=== PATIENT | male | born 1990 | race Caucasian/White ===

== ENCOUNTER 2016-08-30 09:42 | Emergency (ER) | payer BC ==
[2016-08-30] MEDS ORDERED: Famotidine 20 MG/2 ML SDV IVPUSH ONE (10:00)
[2016-08-30] MEDS ORDERED: Sodium Chloride 0.9% 2.5 ML Syringe FLUSH PRN (10:00)
[2016-08-30] MEDS ORDERED: Sodium Chloride 0.9% 10 ML Syringe FLUSH PRN (10:00)
[2016-08-30] MEDS ORDERED: Ondansetron 4 MG/2 ML SDV IVPUSH ONE (10:00)
[2016-08-30] MEDS ORDERED: Sodium Chloride 0.9% 1,000 ML IV ONE (10:00)
[2016-08-30] MEDS ORDERED: Pantoprazole 40 MG Vial IVPUSH ONE (10:04)
[2016-08-30] MEDS ORDERED: Morphine 2 MG/ML Syringe IVPUSH ONE (10:05)
--- NOTE | 2016-08-30 10:13 | EDM.PDOC ---
ED HPI GENERAL MEDICAL PROBLEM - General Chief Complaint: Gastrointestinal Problem Stated Complaint: VOMITTING BLOOD Time Seen by Provider: 08/30/16 10:00 - History of Present Illness INITIAL COMMENTS - FREE TEXT/NARRATIVE: HISTORY AND PHYSICAL: History of present illness: The patient is a 26-year-old male with a history of an ulcer that he takes over- the-counter meds for presents with complaints of diffuse abdominal pain vomiting without blood after a drinking binge last evening. The patient states the pain is diffuse on his abdomen and crampy and sharp her but more in the upper abdomen on the left and epigastrium. There is no chest pain or shortness of breath and no dizziness or lightheadedness. Patient also states he had some lack loose stool this morning but he has no rectal pain. Patient states he does drink regularly and has never had liver or pancreas issues in the past. He has no colonic issues and no surgical history. Patient came to the ED because he was concerned about the blood in the vomit. Review of systems: As per history of present illness and below otherwise all systems reviewed and negative. Past medical history: As per history of present illness and as reviewed below otherwise noncontributory. Surgical history: As per history of present illness and as reviewed below otherwise noncontributory. Social history: No reported history of drug or alcohol abuse. Family history: As per history of present illness and as reviewed below otherwise noncontributory. Physical exam: General: Well-developed well-nourished man who looks uncomfortable in the room with speaking clearly and easily and is not tremulous. HEENT: Atraumatic, normocephalic, pupils reactive, negative for conjunctival pallor or scleral icterus, mucous membranes tacky, throat clear, neck supple, nontender, trachea midline. Lungs: Clear to auscultation, breath sounds equal bilaterally, chest nontender. Heart: S1S2, regular rhythm and slightly tachycardic rate on my evaluation, negative for clicks, rubs, or JVD. Abdomen: Soft, nondistended, diffusely tender more in the epigastrium and left upper abdomen without rebound or guarding, bowel sounds are normoactive Negative for masses or hepatosplenomegaly. Negative for costovertebral tenderness. Pelvis: Stable nontender. Genitourinary: Deferred. Rectal: Normal tone no anal or perirectal masses there is scant light brown stool in the vault which is Hemoccult negative Extremities: Atraumatic, negative for cords or calf pain. Neurovascular unremarkable. Neuro: Awake, alert, oriented. Cranial nerves II through XII unremarkable. Cerebellum unremarkable. Motor and sensory unremarkable throughout. Exam nonfocal. Diagnostics: CBC CMP amylase lipase EtOH level We'll reevaluate and consider CT scan as indicated Therapeutics: IV fluids Protonix Zofran morphine He is sleeping currently and has not had any vomiting while he is here. I discussed all testing results with a significant other at bedside and the patient. I advised close followup for the esophagitis and I will place him on Prevacid until he can followup. I will also give him Zofran and advised clear liquid diet today no caffeine no alcohol and no fast foods or junk foods. Advised and reasons to return to the ED. Impression: Abdominal pain with hematemesis status post alcohol use; esophagitis acute on chronic; alcohol intoxication Definitive disposition and diagnosis as appropriate pending reevaluation and review of above. abdomen Pain Score (Numeric/FACES): 10 - Related Data Allergies Allergy/AdvReac Type Severity Reaction Status Date / Time No Known Allergies Allergy Verified 08/30/16 10:05 Home Meds: Home Meds . [No Known Home Meds] 07/15/15 [History] Past Medical History - Past Health History Medical/Surgical History: Denies Medical/Surgical History - Infectious Disease History Infectious Disease History: Reports: Chicken pox Other Infectious Disease History: childhood - Past Surgical History GI Surgical History: Reports: Hernia, abdominal, Other (see below) Other GI Surgeries/Procedures: x2 Oncologic Surgical History: Reports: Mastectomy, Other (see below) Other Oncologic Surgeries/Procedures: non cancerous cyst removed on right 5th finger Social & Family History - Family History Family Medical History: Noncontributory - Tobacco Use Smoking Status *Q: Current Every Day Smoker Years of Tobacco use: 2 Packs/Tins Daily: 1 - Alcohol Use Days Per Week of Alcohol Use: 1 Number of Drinks Per Day: 5 Total Drinks Per Week: 5 - Recreational Drug Use Recreational Drug Use: No ED ROS GENERAL - Review of Systems Review Of Systems: ROS reveals no pertinent complaints other than HPI. ED EXAM, GENERAL - Physical Exam Exam: See Below (See dictation) Course - Vital Signs Last Recorded V/S: Last Vital Signs Temp 36.2 C 08/30/16 10:00 Pulse 113 H 08/30/16 10:00 Resp 18 08/30/16 10:00 BP 116/68 08/30/16 10:00 Pulse Ox 96 08/30/16 10:00 - Orders/Labs/Meds Orders: Active Orders 24 hr Category Date Time Status Hemoccult [Fecal Occult Blood Collection] [RC] Care 08/30/16 10:12 Active ASDIRECTED Abdomen Pelvis w Cont [CT] Stat Exams 08/30/16 10:50 Taken Sodium Chloride 0.9% [Saline Flush] Med 08/30/16 10:00 Active 10 ml FLUSH ASDIRECTED PRN Sodium Chloride 0.9% [Saline Flush] Med 08/30/16 10:00 Active 2.5 ml FLUSH ASDIRECTED PRN Saline Lock Insert [OM.PC] Stat Oth 08/30/16 10:00 Ordered Medication Orders Sodium Chloride (Saline Flush) 10 ml FLUSH ASDIRECTED PRN PRN Reason: Keep Vein Open Last Admin: 08/30/16 10:25 Dose: 10 ml Sodium Chloride (Saline Flush) 2.5 ml FLUSH ASDIRECTED PRN PRN Reason: Keep Vein Open Last Admin: 08/30/16 10:25 Dose: 2.5 ml Labs: Laboratory Tests 08/30/16 08/30/16 08/30/16 Range/Units 10:23 10:23 10:23 WBC 14.33 H (4.0-11.0) K/uL RBC 5.20 (4.50-5.90) M/uL Hgb 16.6 (13.0-17.0) g/dL Hct 47.2 (38.0-50.0) % MCV 90.8 (80.0-98.0) fL MCH 31.9 (27.0-32.0) pg MCHC 35.2 (31.0-37.0) g/dL RDW Std Deviation 42.8 (28.0-62.0) fl RDW Coeff of Alejandra 13 (11.0-15.0) % Plt Count 271 (150-400) K/uL MPV 10.80 (7.40-12.00) fL Neut % (Auto) 80.9 H (48.0-80.0) % Lymph % (Auto) 15.6 L (16.0-40.0) % [place] % (Auto) 3.3 (0.0-15.0) % Eos % (Auto) 0.1 (0.0-7.0) % Baso % (Auto) 0.1 (0.0-1.5) % Neut # 11.6 H (1.4-5.7) K/uL Lymph # 2.2 (0.6-2.4) K/uL [place] # 0.5 (0.0-0.8) K/uL Eos # 0.0 (0.0-0.7) K/uL Baso # 0.0 (0.0-0.1) K/uL Sodium 139 (136-146) mmol/L Potassium 4.4 (3.5-5.1) mmol/L Chloride 103 (98-110) mmol/L Carbon Dioxide 22 (21-31) mmol/L BUN 13 (6.0-23.0) mg/dL Creatinine 0.8 (0.6-1.5) mg/dL Est Cr Clr Drug Dosing 134.19 mL/min Estimated GFR (MDRD) > 60.0 ml/min Glucose 124 H (60-110) mg/dL Calcium 9.3 (8.8-10.8) mg/dL Total Bilirubin 0.4 (0.1-1.5) mg/dL AST 24 (5-40) IU/L ALT 42 (8-54) IU/L Alkaline Phosphatase 61 (40-150) Total Protein 8.0 (6.0-8.0) g/dL Albumin 4.9 (3.5-5.0) g/dL Globulin 3.1 (2.0-3.5) g/dL Albumin/Globulin Ratio 1.6 (1.3-2.8) Amylase 72 (10-90) U/L Lipase 17 (7-80) U/L Ethyl Alcohol 227.7 mg/dL Meds: Medications Generic Name Dose Route Start Last Admin Trade Name Freq PRN Reason Stop Dose Admin Sodium Chloride 10 ml 08/30/16 10:00 08/30/16 10:25 Saline Flush FLUSH 10 ml ASDIRECTED PRN Administration Keep Vein Open Sodium Chloride 2.5 ml 08/30/16 10:00 08/30/16 10:25 Saline Flush FLUSH 2.5 ml ASDIRECTED PRN Administration Keep Vein Open Discontinued Medications Generic Name Dose Route Start Last Admin Trade Name Freq PRN Reason Stop Dose Admin Famotidine 20 mg 08/30/16 10:00 Pepcid IVPUSH 08/30/16 10:01 ONETIME ONE Sodium Chloride 1,000 mls @ 999 mls/hr 08/30/16 10:00 08/30/16 10:25 Normal Saline IV 08/30/16 11:00 999 mls/hr STAT ONE Administration Iopamidol 100 ml 08/30/16 11:24 08/30/16 11:24 Isovue-370 (76%) IVPUSH 08/30/16 11:25 100 ml ONETIME STA Administration Morphine Sulfate 2 mg 08/30/16 10:05 08/30/16 10:25 Morphine IVPUSH 08/30/16 10:06 2 mg ONETIME ONE Administration Ondansetron HCl 4 mg 08/30/16 10:00 08/30/16 10:24 Zofran IVPUSH 08/30/16 10:01 4 mg ONETIME ONE Administration Pantoprazole Sodium 80 mg 08/30/16 10:04 08/30/16 10:25 Protonix Iv IVPUSH 08/30/16 10:05 80 mg .BOLUS ONE Administration Departure - Departure Time of Disposition: 12:07 Disposition: Home, Self-Care 01 Condition: fair Clinical Impression: Vomiting, Alcohol use Abdominal pain Qualifiers: Abdominal location: generalized Qualified Code(s): R10.84 - Generalized abdominal pain Referrals: PCP,None [Primary Care Provider] - Forms: ED Department Discharge Additional Instructions: The following information is given to patients seen in the emergency department who are being discharged to home. This information is to outline your options for follow-up care. We provide all patients seen in our emergency department with a follow-up referral. The need for follow-up, as well as the timing and circumstances, are variable depending upon the specifics of your emergency department visit. If you don't have a primary care physician on staff, we will provide you with a referral. We always advise you to contact your personal physician following an emergency department visit to inform them of the circumstance of the visit and for follow-up with them and/or the need for any referrals to a consulting specialist. The emergency department will also refer you to a specialist when appropriate. This referral assures that you have the opportunity for followup care with a specialist. All of these measure are taken in an effort to provide you with optimal care, which includes your followup. Under all circumstances we always encourage you to contact your private physician who remains a resource for coordinating your care. When calling for followup care, please make the office aware that this follow-up is from your recent emergency room visit. If for any reason you are refused follow-up, please contact the [facility] emergency department at and ask to speak to the emergency department charge nurse. [facility] Primary care- Internal Medicine and [facility] [address] [place] [address] [facility] Professional [facility] [address] [place] [id number] Please follow up with primary care and neurosurgery department for further evaluation of the esophagitis. Please refrain from caffeine and alcohol use and push clear liquid diet today and bland bites of food as tolerated. Please rest and return to ER as needed and as discussed. Take medications as prescribed. - My Orders Last 24 Hours: My Active Orders 08/30/16 10:00 Sodium Chloride 0.9% [Saline Flush] 10 ml FLUSH ASDIRECTED PRN Sodium Chloride 0.9% [Saline Flush] 2.5 ml FLUSH ASDIRECTED PRN Saline Lock Insert [OM.PC] Stat 08/30/16 10:12 Hemoccult [Fecal Occult Blood Collection] [RC] ASDIRECTED 08/30/16 10:50 Abdomen Pelvis w Cont [CT] Stat - Assessment/Plan Last 24 Hours: My Active Orders 08/30/16 10:00 Sodium Chloride 0.9% [Saline Flush] 10 ml FLUSH ASDIRECTED PRN Sodium Chloride 0.9% [Saline Flush] 2.5 ml FLUSH ASDIRECTED PRN Saline Lock Insert [OM.PC] Stat 08/30/16 10:12 Hemoccult [Fecal Occult Blood Collection] [RC] ASDIRECTED 08/30/16 10:50 Abdomen Pelvis w Cont [CT] Stat
[2016-08-30 10:54] LABS: CHLORIDE,CL 103 mmol/L (98-110); SODIUM,NA 139 mmol/L (136-146)
[2016-08-30] MEDS ORDERED: Iopamidol 755 Mg/ML 100 ML Bottle IVPUSH STA (11:24)
[2016-08-30 12:18] VITALS: BP 113/70
--- NOTE | 2016-08-31 16:58 | CT ---
EXAM DATE: 08/30/16 PATIENT'S AGE: 26 Patient: CLARKE WALLIS Facility: [place], [place] Site . Site : 1990 Study: CT Abdomen/Pelvis w cont [id number] 11:25:20 AM Ordering Physician: Angel Lovelace Final Report: INDICATION: Left lower quadrant abdominal pain; hematemesis; patient was drinking excessively last night. Comparison: CT abdomen and pelvis October 07, 2015. Technique: CT abdomen and pelvis with intravenous contrast; no oral contrast; coronal and sagittal reformats. Findings: No abnormal intra pulmonary nodular densities through the lung bases. No evidence of pleural effusion. Normal size cardiac silhouette without any evidence of pericardial effusion. No focal hepatic or splenic pathology. No pancreatic pathology. No peripancreatic inflammatory changes. No evidence of calcifications within the pancreas. Gallbladder is unremarkable. Splenic vein, superior mesenteric vein and the portal vein are unremarkable. Hepatic veins and the inferior vena cava are unremarkable. No evidence of pneumomediastinum. Minimal thickening of the wall of the distal esophagus; rule out esophagitis. No evidence of abdominal or pelvic ascites. No adrenal pathology. Symmetric perfusion of both the kidneys without any obstructive uropathy or perinephric pathology . No retroperitoneal lymphadenopathy. Normal appendix. CT study of the pelvis is unremarkable. Impression: 1. Minimal thickening of the wall of the distal esophagus; rule out esophagitis. 2. Negative CT of the abdomen and pelvis with intravenous contrast otherwise. Dictated by Joellen Fontenot MD @ Aug 30 2016 11:38AM (Electronic Signature) Report Signed by Proxy and Original Signed Document filed in the Medical Record. [facility]
== END 2016-08-30 12:11 | disposition home or self-care (01) ==
LOC: MW.ED 09:42
DX: F10.129 Alcohol abuse with intoxication, unspecified (principal); K20.9 Esophagitis, unspecified; R11.10 Vomiting, unspecified; F17.210 Nicotine dependence, cigarettes, uncomplicated; Y90.7 Blood alcohol level of 200-239 mg/100 ml
CPT/HCPCS: 36415; 74177; 80053; 82150; 83690; 85025; 96361; 96374; 96375; 99284; C9113; G0480; J2270; J2405; J7040; Q9967

== ENCOUNTER 2017-05-01 14:17 | Emergency (ER) | payer SELFPAY ==
[2017-05-01] MEDS ORDERED: Sodium Chloride 0.9% 1,000 ML IV ONE (14:45)
[2017-05-01] MEDS ORDERED: HYDROmorphone 2 MG/ML Syringe IVPUSH ONE (14:45)
[2017-05-01] MEDS ORDERED: Ondansetron 4 MG/2 ML SDV IVPUSH ONE (14:45)
[2017-05-01 15:21] LABS: CHLORIDE,CL 108 mmol/L (98-110); SODIUM,NA 139 mmol/L (136-146)
[2017-05-01] MEDS ORDERED: Ketorolac 30 MG/ML SDV IVPUSH ONE (16:49)
--- NOTE | 2017-05-01 16:51 | EDM.PDOC ---
ED HPI GENERAL MEDICAL PROBLEM - General Chief Complaint: Back Pain or Injury Stated Complaint: LOWER BACK PAIN Time Seen by Provider: 05/01/17 14:46 Source of Information: Reports: Patient History Limitations: Reports: No Limitations - History of Present Illness INITIAL COMMENTS - FREE TEXT/NARRATIVE: History of present illness: [26-year-old male presenting with low back pain] Review of systems: As per history of present illness and below otherwise all systems reviewed and negative. Past medical history: As per history of present illness and as reviewed below otherwise noncontributory. Surgical history: As per history of present illness and as reviewed below otherwise noncontributory. Social history: No reported history of drug or alcohol abuse. Family history: As per history of present illness and as reviewed below otherwise noncontributory. Physical exam: HEENT: Atraumatic, normocephalic, pupils reactive, negative for conjunctival pallor or scleral icterus, mucous membranes moist, throat clear, neck supple, nontender, trachea midline. Lungs: Clear to auscultation, breath sounds equal bilaterally, chest nontender. Heart: S1S2, regular, negative for clicks, rubs, or JVD. Abdomen: Soft, nondistended, nontender. Negative for masses or hepatosplenomegaly. Negative for costovertebral tenderness. Pelvis: Stable nontender. Genitourinary: Deferred. Rectal: Deferred. Extremities: Atraumatic, negative for cords or calf pain. Neurovascular unremarkable. Neuro: Awake, alert, oriented. Cranial nerves II through XII unremarkable. Cerebellum unremarkable. Motor and sensory unremarkable throughout. Exam nonfocal. Global assessment is benign save the subjective complaint as noted. Patient complaining of lower back pressure and pain. I discussed results of CT with patient indicates that he has had chronic constipation and has had to take laxatives in the past. Diagnostics: [CBC, CMP, UA, CT of abdomen and pelvis] Therapeutics: [IV fluid,] Impression: [Constipation] Plan: [2:00 suppository, mag citrate follow-up PCP] Definitive disposition and diagnosis as appropriate pending reevaluation and review of above. Lower Back Pain Score (Numeric/FACES): 1 - Related Data Allergies Allergy/AdvReac Type Severity Reaction Status Date / Time No Known Allergies Allergy Verified 05/01/17 14:22 Home Meds: Home Meds Ibuprofen 200 mg PO BID 05/01/17 [History] Magnesium Citrate 296 ml PO ONETIME #1 solution 05/01/17 [Rx] Past Medical History - Past Health History Medical/Surgical History: Denies Medical/Surgical History HEENT History: Reports: None Cardiovascular History: Reports: None Respiratory History: Reports: None Gastrointestinal History: Reports: None Genitourinary History: Reports: None Musculoskeletal History: Reports: None Neurological History: Reports: None Psychiatric History: Reports: None Endocrine/Metabolic History: Reports: None Hematologic History: Reports: None Immunologic History: Reports: None Oncologic (Cancer) History: Reports: None Dermatologic History: Reports: None - Infectious Disease History Infectious Disease History: Reports: Chicken Pox Other Infectious Disease History: childhood - Past Surgical History Head Surgeries/Procedures: Reports: None HEENT Surgical History: Reports: None Cardiovascular Surgical History: Reports: None Respiratory Surgical History: Reports: None GI Surgical History: Reports: Hernia, Abdominal, Other (See Below) Male Surgical History: Reports: None Neurological Surgical History: Reports: None Oncologic Surgical History: Reports: Mastectomy, Other (See Below) Social & Family History - Family History Family Medical History: Noncontributory - Tobacco Use Smoking Status *Q: Current Every Day Smoker Years of Tobacco use: 7 Packs/Tins Daily: 0.2 - Caffeine Use Caffeine Use: Reports: None - Alcohol Use Days Per Week of Alcohol Use: 1 Number of Drinks Per Day: 5 Total Drinks Per Week: 5 - Recreational Drug Use Recreational Drug Use: No ED ROS GENERAL - Review of Systems Review Of Systems: See Below (See history of present illness) ED EXAM, GENERAL - Physical Exam Exam: See Below (See history of present illness) Course - Vital Signs Last Recorded V/S: Last Vital Signs Temp 37.4 C 05/01/17 14:23 Pulse 88 05/01/17 16:30 Resp 20 05/01/17 16:30 BP 115/67 05/01/17 16:30 Pulse Ox 97 05/01/17 16:30 - Orders/Labs/Meds Orders: Active Orders 24 hr Category Date Time Status Abdomen Pelvis w Cont [CT] Stat Exams 05/01/17 14:45 Taken Labs: Laboratory Tests 05/01/17 05/01/17 05/01/17 Range/Units 14:55 14:55 16:36 WBC 7.79 (4.0-11.0) K/uL RBC 5.12 (4.50-5.90) M/uL Hgb 16.7 (13.0-17.0) g/dL Hct 47.0 (38.0-50.0) % MCV 91.8 (80.0-98.0) fL MCH 32.6 H (27.0-32.0) pg MCHC 35.5 (31.0-37.0) g/dL RDW Std Deviation 45.1 (28.0-62.0) fl RDW Coeff of Alejandra 14 (11.0-15.0) % Plt Count 244 (150-400) K/uL MPV 11.00 (7.40-12.00) fL Neut % (Auto) 62.8 (48.0-80.0) % Lymph % (Auto) 27.6 (16.0-40.0) % [place] % (Auto) 8.6 (0.0-15.0) % Eos % (Auto) 0.6 (0.0-7.0) % Baso % (Auto) 0.4 (0.0-1.5) % Neut # (Auto) 4.9 (1.4-5.7) K/uL Lymph # (Auto) 2.2 (0.6-2.4) K/uL [place] # (Auto) 0.7 (0.0-0.8) K/uL Eos # (Auto) 0.1 (0.0-0.7) K/uL Baso # (Auto) 0.0 (0.0-0.1) K/uL Nucleated RBC % 0.0 /100WBC Nucleated RBCs # 0 K/uL Sodium 139 (136-146) mmol/L Potassium 3.8 (3.5-5.1) mmol/L Chloride 108 (98-110) mmol/L Carbon Dioxide 20 L (21-31) mmol/L BUN 17 (6.0-23.0) mg/dL Creatinine 0.8 (0.6-1.5) mg/dL Est Cr Clr Drug Dosing 120.65 mL/min Estimated GFR (MDRD) > 60.0 ml/min Glucose 98 (60-110) mg/dL Calcium 9.7 (8.8-10.8) mg/dL Total Bilirubin 0.5 (0.1-1.5) mg/dL AST 19 (5-40) IU/L ALT 36 (8-54) IU/L Alkaline Phosphatase 59 (40-150) Total Protein 7.5 (6.0-8.0) g/dL Albumin 4.4 (3.5-5.0) g/dL Globulin 3.1 (2.0-3.5) g/dL Albumin/Globulin Ratio 1.4 (1.3-2.8) Urine Color YELLOW Urine Appearance CLEAR Urine pH 7.0 (5.0-8.0) Ur Specific [place] 1.015 (1.001-1.035) Urine Protein NEGATIVE (NEGATIVE) mg/dL Urine Glucose (UA) NEGATIVE (NEGATIVE) mg/dL Urine Ketones NEGATIVE (NEGATIVE) mg/dL Urine Occult Blood NEGATIVE (NEGATIVE) Urine Nitrite NEGATIVE (NEGATIVE) Urine Bilirubin NEGATIVE (NEGATIVE) Urine Urobilinogen 0.2 (<2.0) EU/dL Ur Leukocyte Esterase NEGATIVE (NEGATIVE) Urine RBC 0-1 (0-2/HPF) Urine WBC 0-1 (0-5/HPF) Ur Epithelial Cells FEW (NONE-FEW) Urine Bacteria FEW (NEGATIVE) Meds: Medications Discontinued Medications Generic Name Dose Route Start Last Admin Trade Name Freq PRN Reason Stop Dose Admin Glycerin 1.5 gm 05/01/17 18:21 Sani-Supp Pediatric RECTAL 05/01/17 18:22 ONETIME ONE Hydromorphone HCl 1 mg 05/01/17 14:45 05/01/17 15:04 Dilaudid IVPUSH 05/01/17 14:46 1 mg ONETIME ONE Administration Sodium Chloride 1,000 mls @ 999 mls/hr 05/01/17 14:45 05/01/17 15:06 Normal Saline IV 05/01/17 15:45 999 mls/hr STAT ONE Administration Iopamidol 100 ml 05/01/17 17:14 05/01/17 17:15 Isovue Multipack-370 (76%) IVPUSH 05/01/17 17:15 100 ml ONETIME STA Administration Ketorolac Tromethamine 30 mg 05/01/17 16:49 05/01/17 16:54 Toradol IVPUSH 05/01/17 16:50 30 mg ONETIME ONE Administration Ondansetron HCl 4 mg 05/01/17 14:45 05/01/17 15:04 Zopankaj IVPUSH 05/01/17 14:46 4 mg ONETIME ONE Administration Departure - Departure Time of Disposition: 18:24 Disposition: Home, Self-Care 01 Condition: Good Clinical Impression: Constipation - Discharge Information Prescriptions: Magnesium Citrate 296 ml PO ONETIME #1 solution Referrals: PCP,None [Primary Care Provider] - Forms: ED Department Discharge Additional Instructions: The following information is given to patients seen in the emergency department who are being discharged to home. This information is to outline your options for follow-up care. We provide all patients seen in our emergency department with a follow-up referral. The need for follow-up, as well as the timing and circumstances, are variable depending upon the specifics of your emergency department visit. If you don't have a primary care physician on staff, we will provide you with a referral. We always advise you to contact your personal physician following an emergency department visit to inform them of the circumstance of the visit and for follow-up with them and/or the need for any referrals to a consulting specialist. The emergency department will also refer you to a specialist when appropriate. This referral assures that you have the opportunity for follow-up care with a specialist. All of these measure are taken in an effort to provide you with optimal care, which includes your follow-up. Under all circumstances we always encourage you to contact your private physician who remains a resource for coordinating your care. When calling for follow-up care, please make the office aware that this follow-up is from your recent emergency room visit. If for any reason you are refused follow-up, please contact the [facility] Emergency Department at and asked to speak to the emergency department charge nurse. Take medication as directed Follow up with PCP 1-2 days Return to ED as needed as discussed - My Orders Last 24 Hours: My Active Orders 05/01/17 14:45 Abdomen Pelvis w Cont [CT] Stat - Assessment/Plan Last 24 Hours: My Active Orders 05/01/17 14:45 Abdomen Pelvis w Cont [CT] Stat
[2017-05-01] MEDS ORDERED: Iopamidol 755 MG/ML 500 ML Multipack Bottle IVPUSH STA (17:14)
[2017-05-01] MEDS ORDERED: Glycerin Pediatric 1.2 GM Supp RECTAL ONE ×2 (18:21→18:44)
[2017-05-01 19:04] VITALS: BP 127/63
--- NOTE | 2017-05-03 13:41 | CT ---
EXAM DATE: 05/01/17 PATIENT'S AGE: 26 Patient: CLARKE WALLIS Facility: [place], [place] : 1990 Study: CT Abdomen/Pelvis [id number] 4:31:38 PM Ordering Physician: JUSTIN Final Report: INDICATION: Abdominal and back pain TECHNIQUE: CT abdomen and pelvis acquired with IV contrast. COMPARISON: 08/30/2016 FINDINGS: Lower chest: Unremarkable. Liver: Unremarkable. Spleen: Unremarkable. Pancreas: Unremarkable. Gallbladder and bile ducts: Unremarkable. Kidneys: Unremarkable. Adrenal glands: Unremarkable. GI tract: Colonic fecal retention. Appendix is normal. Vascular structures: Unremarkable. Lymph nodes: Unremarkable. Miscellaneous: Small fat containing umbilical hernia. No free air or significant free fluid. Pelvic Organs: Unremarkable. Bones: Unremarkable for age. IMPRESSION: Colonic fecal retention in the ascending and transverse colon, otherwise unremarkable CT of the abdomen and pelvis. Dictated by Bethel Stafford MD @ 05/01/2017 4:57:39 PM Dictated by: Bethel Stafford MD @ 05/01/2017 16:57:44 (Electronic Signature) Report Signed by Proxy. [facility]
== END 2017-05-01 19:06 | disposition home or self-care (01) ==
LOC: MW.ED 14:17
DX: K59.00 Constipation, unspecified (principal); F17.210 Nicotine dependence, cigarettes, uncomplicated
CPT/HCPCS: 36415; 74177; 80053; 81001; 85025; 96361; 96374; 96375; 99284; J1170; J1885; J2405; J7040; Q9967; 99283